=== PATIENT | female | born 2000 | race Caucasian/White ===

== ENCOUNTER → 2025-05-18 12:08 | Outpatient (CLI) | payer OTHER, SELFPAY ==
--- NOTE | 2025-05-18 12:11 | DI.US.S_ITS ---
PROCEDURE: US OB >= 14 WEEKS FETUS INDICATIONS: Detailed anatomy scan at 20wks OUTSIDE/PRIOR DATING DATA: Last menstrual period (LMP): 01/02/2025 LMP-based estimated date of delivery (SACHIN): 10/09/2025 First dating scan (date and location): 03/13/2025 (outside exam not available) Estimated date of delivery (SACHIN) from first dating scan: 10/07/2025 The calculations are made using the clinical SACHIN of 10/09/2025. TECHNIQUE: Real-time scanning was performed of the fetus, with image documentation and biometric measurements. Endovaginal scanning: Not performed. COMPARISON: None. FINDINGS: General: A single living intrauterine gestation is present. Presentation: Vertex Placenta: Placental position is anterior, without previa. Amniotic fluid index: 16.2 cm, normal range is 5-24 cm. Single deepest vertical pocket is 5.0 cm. heart rate: 139 beats per minute. Maternal cervical canal: 3.5 cm long. Normal lower limit is 2.5 cm. biometrics: Biparietal diameter: 4.9 cm, 21 weeks 0 days Head circumference: 18.3 cm, 20 weeks 5 days Abdominal circumference: 15.3 cm, 20 weeks 3 days Femur length: 3.5 cm, 20 weeks 6 days Clinically estimated gestational age: 19 weeks 3 days Composite gestational age from present scan: 20 weeks 5 days Estimated weight and percentile: 370 g, 97th percentile Anatomic survey: Neuro: Ventricles are non-dilated at less than 10 mm. Cisterna magna is normal at 3-11 mm. Cerebellum is normal in size and morphology. Nuchal skin fold: Normal at less than 6 mm between 14-21 weeks gestational age. Face: Nose and lips, facial profile are normal. Spine: No evidence for spina bifida. Heart: 4-chambered heart is present, with normal ventricular outflow tracts. Diaphragm: Diaphragm is intact. Stomach: Left-sided stomach is present. Kidneys: No hydronephrosis. Normal is less than 5 mm in 2nd trimester, less than 7 mm in 3rd trimester. Cord: 3-vessel cord has orthotopic insertion. Bladder: Normal in size. Extremities: All 4 extremities identified. IMPRESSION: 1. Single live intrauterine at 19 weeks 3 days clinical gestational age. 2. Estimated weight is at the 97th percentile for gestational age. Recommend correlation for possible developing macrosomia. 3. anatomic survey is otherwise within normal limits. Approved by: Remington De La O M.D. on 05/18/2025 at 16:33
== END ==
PROVIDERS: Referring Provider Obstetrics & Gynecology; Visit Provider Obstetrics & Gynecology
DX: O09.892 Supervision of other high risk pregnancies, second trimester (principal); O26.892 Other specified pregnancy related conditions, second trimester; Z67.91 Unspecified blood type, Rh negative; F41.1 Generalized anxiety disorder; Z3A.19 19 weeks gestation of pregnancy
CPT/HCPCS: 76811